=== PATIENT | female | born 1965 | race Caucasian/White ===

== ENCOUNTER → 2017-11-20 10:00 | Outpatient (CLI) | payer BC | END | disposition home or self-care (01) | LOC: D.MAMMO 10:00 | DX: Z12.31 Encounter for screening mammogram for malignant neoplasm of breast (principal) ==

== ENCOUNTER → 2018-08-16 13:31 | Outpatient (CLI) | payer OTHER | END | disposition home or self-care (01) | LOC: D.US 13:31 | PROVIDERS: ATTEND Family Medicine | DX: E04.9 Nontoxic goiter, unspecified (principal) ==

== ENCOUNTER 2019-03-04 09:00 | Outpatient (CLI) | payer OTHER | END 2019-03-04 09:30 | disposition home or self-care (01) | LOC: D.MAMMO 09:00 | PROVIDERS: ATTEND Family Medicine | DX: Z12.31 Encounter for screening mammogram for malignant neoplasm of breast (principal) ==

== ENCOUNTER 2019-05-18 06:10 | Day surgery (SDC) | payer OTHER ==
[2019-05-16 14:42] LABS: BASOPHILS 0.7 % (0-2); EOSINOPHILS 4.1 % (0-7); HEMATOCRIT 42.2 % (36.0-48.0); HEMOGLOBIN 14.1 g/dL (12-16); LYMPHOCYTES 36.9 % (15-50); MCH 31.9 pg (26.0-34.0); MCHC 33.4 g/dL (31.0-37.0); MCV 95.5 fL (80.0-100.0); MEAN PLATELET VOLUME 8.6 fL (7.4-10.4); MONOCYTES 8.3 % (2-11); PLATELET COUNT 271 10x3/uL (130-400); RBC 4.42 10x6/uL (4.00-5.40); RDW 12.7 % (11.5-14.5); WBC 6.9 10x3/uL (4.8-10.8)
[~2019-05-18] VITALS: Ht 165.1 cm; Wt 77.1 kg
--- NOTE | ~2019-05-18 | OP ---
PATIENT NAME: ROBERTO LARA MEDICAL RECORD: [id number] :63 LOCATION:[facility] ADMISSION DATE: SURGEON: JOHN PADILLA DO DATE OF OPERATION: 05/18/2019 PREOPERATIVE DIAGNOSIS: Postmenopausal bleeding. POSTOPERATIVE DIAGNOSIS: Postmenopausal bleeding. PRIMARY SURGEON: John Padilla DO MANAGING MEMBER SURGEON: Not applicable. PROCEDURE: Hysteroscopy, dilation and curettage. FINDINGS: Normal appearing external genitalia, normal appearing vaginal vault, normal appearing cervix, retroverted uterus sounded to 7 cm. Uterus with internal blood and difficult to see with the hysteroscope; however, no gross abnormalities visible. SPECIMENS: Endometrial curettings. ESTIMATED BLOOD LOSS: 5 cc. IV FLUIDS: 600 cc. COMPLICATIONS: None. CONDITION: Stable. PROCEDURE IN DETAIL: The risks, benefits, alternatives and indications of the procedure were discussed with the patient. She voiced understanding of the procedure and wished to proceed. She was taken to the OR where general anesthesia was administered and found to be adequate. She was placed in the dorsal lithotomy position. She was prepped and draped in the normal sterile fashion. A speculum was placed in the posterior aspect of the vagina and a single tooth tenaculum was used to grasp the anterior lip of the cervix. The cervix was noted to be stenotic; however, able to be dilated to accommodate the hysteroscope. The hysteroscope was inserted and due to blood inside the uterus, a full visual examination was not able to be performed; however, no gross abnormalities were noted. The hysteroscope was removed and the cervix was further dilated to accommodate a sharp curette. A gentle sharp curettage was then performed at the inside of the uterus and endometrial curettings were sent to pathology. All instruments were removed from the vagina with good hemostasis noted at the tenaculum site. All lap sponge and instrument counts were correct times 2. The patient tolerated the procedure well. She was awakened and taken to the recovery room in stable condition. She will follow up in 2 weeks for results. TRANSINT:[id number] Voice Confirmation ID: [id number] DOCUMENT ID: [id number] OPERATIVE REPORT [id number] ROBERTO LARA JOHN PADILLA DO CC: [id number] DICTATION DATE: 05/18/19913 SLOT AMBASSADOR: 05/18/19 1028 [place] [id number]
[~2019-05-18 06:10] MED LIST: MULTI-DAY VITAM1 TAB PO; PAROXETINE HCL10 MG PO; VITAMIN D31000 UNI2 PO
[2019-05-18 07:05] VITALS: BP 93/57; Ht 165.1 cm; Wt 77.1 kg
[2019-05-18 07:17] LABS: HCG URINE NEGATIVE (NEGATIVE)
--- NOTE | 2019-05-18 09:44 | NUR ---
0940 [place] DIET SERVED, [employer]ERS SERVED.
== END 2019-05-18 11:20 | disposition home or self-care (01) ==
LOC: D.OPS 06:10 → D.PAN 08:00 → D.OPS 11:20
PROVIDERS: ATTEND Student in an Organized Health Care Education/Training Program
DX: N95.0 Postmenopausal bleeding (principal); N95.9 Unspecified menopausal and perimenopausal disorder